=== PATIENT | male | born 1990 | race African-American/Black ===

== ENCOUNTER 2018-12-05 15:55 | Emergency (ER) | payer OTHER ==
[~2018-12-05] VITALS: Ht 170.2 cm; Wt 97.7 kg
[2018-12-05 17:27] VITALS: BP 124/86
--- NOTE | 2018-12-05 19:53 | REP ---
RIGHT SHOULDER, FOUR VIEWS: Four views of the right shoulder were performed. There is no evidence of acute fracture, dislocation, or instrinsic bone disease. 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 Electronically Signed by Eris Weber MD 12/07/2018 12:08 A
== END 2018-12-05 17:28 | disposition home or self-care (01) ==
LOC: M ED 15:55
DX: M89.8X1 Other specified disorders of bone, shoulder (principal)